=== PATIENT | female | born 1970 | race Caucasian/White ===

== ENCOUNTER 2019-08-26 20:58 | Emergency (ER) | payer OTHER, MEDICAID ==
[2019-08-26] MEDS ORDERED: PROCHLORPERAZINE EDISYLATE INJ 10 MG/2 ML VIAL IV ONE (22:07)
[2019-08-26] MEDS ORDERED: ACETAMINOPHEN 325 MG TABLET PO ONE (22:07)
[2019-08-26] MEDS ORDERED: DIPHENHYDRAMINE HCL 50 MG/ML VIAL IV ONE (22:07)
[2019-08-26] MEDS ORDERED: NORMAL SALINE 500 ML IV ONE (22:09)
--- NOTE | 2019-08-26 22:09 | ER Document Report ---
ED Medical Screen (RME) - General Chief Complaint: Headache Stated Complaint: HEAD INJURY Time Seen by Provider: 08/26/19 22:04 Primary Care Provider: MELVINA GR [Primary Care Provider] - Follow up as needed - [facility] Notes: 08/26/19 22:07 Patient is a 49-year-old female with a history of Mukherjee's palsy, migraines, hypertension, diabetes who presents complaining of head injury when she was at work this evening around 7:30 PM. Patient states that she was holding a container overhead that weighs about 8 pounds when she dropped it on the top of her head. Patient states that she did have some blurring initially, but now has light sensitivity and a headache with nausea. Denies any fever, neck pain, changes in speech/mentation/hearing, URI, sore throat, chest pain, palpitations, syncope, cough, shortness of breath, wheeze, dyspnea, abdominal pain, vomiting/diarrhea, urinary retention, dysuria, hematuria, loss of control of bowel or bladder, numbness/tingling, saddle anesthesia, muscle paralysis/wea kness, or rash. Pt took Aleve 500mg [employer]. Will hold on toradol for right now. I have treated and performed a rapid initial assessment of this patient. A comprehensive ED assessment and evaluation of the patient, analysis of test results and completion of medical decision making process will be conducted by additional ED providers. PHYSICAL EXAMINATION: GENERAL: Well-appearing, well-nourished and in no acute distress. A&Ox4. Answers questions appropriately. Head: There is no evidence of hematoma, bogginess, hall sign, raccoon eyes, hemotympanum. Neuro: Cranial nerves grossly intact, NIH 0, GCS 15. Neck: No midline tenderness. - Related Data Allergies/Adverse Reactions: Penicillins Allergy (Verified 08/26/19 21:59) tuberculin,PPD,multi-puncture Allergy (Verified 08/26/19 21:59) Physical Exam - Vital signs Vitals: Temp Pulse Resp BP Pulse Ox 97.9 F 85 20 163/99 H 97 08/26/19 21:31 08/26/19 21:31 08/26/19 21:31 08/26/19 21:31 08/26/19 21:31 Course - Vital Signs Vital signs: Temp Pulse Resp BP Pulse Ox 97.9 F 85 20 163/99 H 97 08/26/19 21:31 08/26/19 21:31 08/26/19 21:31 08/26/19 21:31 08/26/19 21:31 Doctor's Discharge - Discharge Referrals: LOCALMD,NO [Primary Care Provider] - Follow up as needed
--- NOTE | 2019-08-27 00:35 | ER Document Report ---
ED General - General Chief Complaint: Headache Stated Complaint: HEAD INJURY Time Seen by Provider: 08/26/19 22:04 Primary Care Provider: MELVINA GR [NO LOCAL MD] - Follow up as needed - [facility] Patient complains to provider of: headache Onset: Just prior to arrival Onset/Duration: Sudden Quality of pain: Achy Severity: Moderate Pain Level: 1 Context: 49 year old female arrives with complaints of headache after dropping a jar on her head accidently while at work. Neck was sore initially with "adrenaline anderson" and she soon realized she could not stay at work. Dropped jar from extended arm above her head. Top of head is sore. Saw stars. Some nausea which is better when I see her. No other injury. No fall from this event. Exacerbated by: Movement, Walking Relieved by: Denies - Related Data Allergies/Adverse Reactions: Penicillins Allergy (Verified 08/26/19 21:59) tuberculin,PPD,multi-puncture Allergy (Verified 08/26/19 21:59) Past Medical History - Social History Smoking Status: Never Smoker Family History: Reviewed & Not Pertinent Patient has suicidal ideation: No Patient has homicidal ideation: No - Past Medical History Cardiac Medical History: Reports: Hx Hypertension Endocrine Medical History: Reports: Hx Diabetes Mellitus Type 2 Past Surgical History: Reports: Hx Section Review of Systems - Review of Systems Constitutional: No symptoms reported EENT: No symptoms reported Cardiovascular: No symptoms reported Respiratory: No symptoms reported Gastrointestinal: Nausea Genitourinary: No symptoms reported Female Genitourinary: No symptoms reported Musculoskeletal: No symptoms reported Skin: No symptoms reported Hematologic/Lymphatic: No symptoms reported Neurological/Psychological: See HPI, Headaches Physical Exam - Vital signs Vitals: Temp Pulse Resp BP Pulse Ox 97.9 F 85 20 163/99 H 97 08/26/19 21:31 08/26/19 21:31 08/26/19 21:31 08/26/19 21:31 08/26/19 21:31 Interpretation: Normal - General General appearance: Appears well, Alert - HEENT Head: Normocephalic, Atraumatic, Other - mild ttp to crown of head wihtout sts. Eyes: Normal Pupils: PERRL - Respiratory Respiratory status: No respiratory distress Chest status: Nontender Breath sounds: Normal Chest palpation: Normal - Cardiovascular Rhythm: Regular Heart sounds: Normal auscultation Murmur: No - Abdominal Inspection: Normal Distension: No distension Bowel sounds: Normal Tenderness: Nontender Organomegaly: No organomegaly - Back Back: Normal, Nontender - Extremities General upper extremity: Normal inspection, Nontender, Normal color, Normal ROM, Normal temperature General lower extremity: Normal inspection, Nontender, Normal color, Normal ROM, Normal temperature, Normal weight bearing. No: Beth's sign - Neurological Neuro grossly intact: Yes Cognition: Normal Orientation: AAOx4 Nancy Coma Scale Eye Opening: Spontaneous [place] Coma Scale Verbal: Oriented Nancy Coma Scale Motor: Obeys Commands [place] Coma Scale Total: 15 Speech: Normal Motor strength normal: LUE, RUE, LLE, RLE Sensory: Normal - Psychological Associated symptoms: Normal affect, Normal mood - Skin Skin Temperature: Warm Skin Moisture: Dry Skin Color: Normal Course - Re-evaluation Re-evalutation: 08/27/19 00:33 MDM 49 year old female dropped jar onto her head prior to arrival. No other injury. Head hurts and h/o migraine. No vomiting. No outward sign of injury. Takes no blood thinners. Feel this is scalp injury with perhaps mild concussion and I explained this to her. Feels improved here. - Vital Signs Vital signs: Temp Pulse Resp BP Pulse Ox 97.5 F 91 16 159/102 H 100 08/27/19 00:54 08/27/19 00:54 08/27/19 00:54 08/27/19 00:54 08/27/19 00:54 Discharge - Discharge Clinical Impression: Contusion Qualifiers: Encounter type: initial encounter Contusion area: head Contusion of head detail: scalp Qualified Code(s): S00.03XA - Contusion of scalp, initial encounter Condition: Good Disposition: HOME, SELF-CARE Instructions: Antinausea Medication ([facility]), Intravenous Compazine for Headaches ([facility]) Additional Instructions: Your blood pressure was elevated a bit here. Be sure and have it rechecked. Take your medicine as directed. Follow up with your primary doctor or work doctor before resuming regular work. You may use ice to your scalp. Prescriptions: Ibuprofen [Motrin 600 mg Tablet] 600 mg PO Q8HP PRN #30 tablet PRN Reason: Forms: Elevated Blood Pressure Referrals: LOCALMD,NO [NO LOCAL MD] - Follow up as needed
[2019-08-27 00:55] VITALS: BP 159/102
== END 2019-08-27 00:55 | disposition home or self-care (01) ==
LOC: ER 20:58
DX: S00.03XA Contusion of scalp, initial encounter (principal); R51 Headache; W20.8XXA Other cause of strike by thrown, projected or falling object, initial encounter; Y99.0 Civilian activity done for income or pay; R11.0 Nausea; I10 Essential (primary) hypertension; E11.9 Type 2 diabetes mellitus without complications; Z88.0 Allergy status to penicillin; Z88.4 Allergy status to anesthetic agent
CPT/HCPCS: 99283; 96361; 96374; 96375; J1200; J0780; J7040

== ENCOUNTER 2020-03-09 12:24 | Emergency (ER) | payer SELFPAY ==
--- NOTE | 2020-03-09 13:34 | ER Document Report ---
HPI - HPI Patient complains to provider of: Right lower rib pain Time Seen by Provider: 03/09/20 13:25 Onset: Other - This 49-year-old female who presented to the emergency room today stating 2 days ago she was leaning over into the trunk of her car had her right lower rib on a box and felt a popping sensation when she was trying to reach past the box. She has no chest pain no shortness of breath no exertional chest pain no exertional shortness of breath no nausea no vomiting no cough no congestion Associated Symptoms: None Exacerbated by: Denies - REPRODUCTIVE Reproductive: DENIES: : Past Medical History - General Information source: Patient - Social History Smoking Status: Never Smoker Cigarette use (# per day): No Chew tobacco use (# tins/day): No Smoking Education Provided: No Frequency of alcohol use: None Drug Abuse: None Lives with: Alone Family History: Reviewed & Not Pertinent - Past Medical History Cardiac Medical History: Reports: Hx Hypertension Endocrine Medical History: Reports: Hx Diabetes Mellitus Type 2 Past Surgical History: Reports: Hx Section Vertical Provider Document - CONSTITUTIONAL Agree With Documented VS: Yes - HEENT HEENT: Atraumatic, Normocephalic, PERRLA - NECK Neck: Normal Inspection - RESPIRATORY Respiratory: Breath Sounds Normal, No Respiratory Distress - CARDIOVASCULAR Cardiovascular: Regular Rate, Regular Rhythm - GI/ABDOMEN Gastrointestinal: Abdomen Soft, Abdomen Non-Tender - REPRODUCTIVE Female Genitalia: Normal Inspection - BACK Back: Normal Inspection - MUSCULOSKELETAL/EXTREMETIES Musculoskeletal/Extremeties: BANNER Course - Re-evaluation Re-evalutation: 03/09/20 15:28 Again is 49-year-old female who was leaning over the trunk of her car felt a pop in her right lower rib area anteriorly she has no crepitus lungs are clear to auscultation in all quadrants saturating 98% breathing 16 respirations a minute she is intuitive she recognizes that she may have fractured it or bruised it she does not have any COVID symptoms however she does work at [employer] comes in contact with a lot of people she does know that a coworker tested positive although with hip complaints do not a lot tell her who says she really does not know she was in contact with them or not she would like a COVID testing that was performed. Based on the fact that she is now under investigation she should go home self monitoring. - Vital Signs Vital signs: Temp Pulse Resp BP Pulse Ox 98.2 F 84 16 144/97 H 97 03/09/20 13:19 03/09/20 13:19 03/09/20 13:19 03/09/20 13:19 03/09/20 13:19 - Diagnostic Test Radiology results interpreted by me: 03/09/20 15:19 Chest X-Ray 03/09/20 13:32 IMPRESSION: NO ACUTE RADIOGRAPHIC FINDING IN THE CHEST. Discharge - Discharge Clinical Impression: Contusion of rib Qualifiers: Encounter type: initial encounter Laterality: right Qualified Code(s): S20.211A - Contusion of right front wall of thorax, initial encounter Disposition: HOME, SELF-CARE Instructions: Rib Contusion ([facility]) Additional Instructions: To help with spread of COVID-19, everyone should: Clean your hands often, either with soap and water for 20 seconds or hand career manager that contains at least 60% alcohol. Avoid close contact with people who are sick. Put distance between yourself and other people at least 6 feet. Cover your mouth and nose with a clean base cover when around others. Cover your cough or sneeze with the tissue then through the tissue in the trash. Clean and disinfect frequently touched objects and surfaces daily. CDC recommends that people wear a clock face coverings in public settings and when around people outside of their household, especially when other social distancing measures are difficult to maintain. Clock face coverings may help prevent people who have COVID-19 from spreading the virus to others. Specifically you have been tested however your results are not back yet he should self quarantine following all the appropriate protocols remaining isolated as much as possible. Follow-up with PMD in 3 to 4 days. Prescriptions: Hydrocodone/Acetaminophen [Wayne 5-325 mg Tablet] 1 tab PO Q4 PRN #30 tablet PRN Reason: pain
--- NOTE | 2020-03-09 14:55 | RADIOLOGY REPORT (SQ) ---
EXAM DESCRIPTION: CHEST 2 VIEWS IMAGES COMPLETED DATE/TIME: 03/09/2020 2:43 pm REASON FOR STUDY: lower rib pain COMPARISON: 2009 EXAM PARAMETERS: NUMBER OF VIEWS: two views TECHNIQUE: Digital Frontal and Lateral radiographic views of the chest acquired. RADIATION DOSE: NA LIMITATIONS: none FINDINGS: LUNGS AND PLEURA: No opacities, masses or pneumothorax. No pleural effusion. MEDIASTINUM AND HILAR STRUCTURES: No masses or contour abnormalities. HEART AND VASCULAR STRUCTURES: Heart normal size. No evidence for failure. BONES: No acute findings. HARDWARE: None in the chest. OTHER: No other significant finding. IMPRESSION: NO ACUTE RADIOGRAPHIC FINDING IN THE CHEST. TECHNICAL DOCUMENTATION: JOB ID: [id number] 2010 [employer]- All Rights Reserved Reading location - IP/workstation name: [email or web address]
[2020-03-09] MEDS ORDERED: HYDROCODONE/ACETAMINOPHEN 5-325 MG TABLET PO ONE (15:18)
[2020-03-09 15:57] VITALS: BP 142/92
== END 2020-03-09 15:58 | disposition home or self-care (01) ==
LOC: ER 12:24
DX: S20.211A Contusion of right front wall of thorax, initial encounter (principal); X58.XXXA Exposure to other specified factors, initial encounter; R07.81 Pleurodynia; I10 Essential (primary) hypertension; E11.9 Type 2 diabetes mellitus without complications; Z20.818 Contact with and (suspected) exposure to other bacterial communicable diseases
CPT/HCPCS: 99283; 87635; 71046; C9803